=== PATIENT | female | born 1945 | race Caucasian/White ===

== ENCOUNTER → 2023-04-04 09:41 | Outpatient (REF) | payer OTHER, SELFPAY | LOC: HWRAD 09:41 | PROVIDERS: ATTENDING PHYSICIAN Registered Nurse | DX: Z78.0 Asymptomatic menopausal state (principal); Z13.820 Encounter for screening for osteoporosis | CPT/HCPCS: 77080 ==

== ENCOUNTER → 2023-09-03 14:57 | Outpatient (REF) | payer OTHER, SELFPAY | LOC: WDC 14:57 | PROVIDERS: ATTENDING PHYSICIAN Surgery; FAMILY PHYSICIAN Physician Assistant Medical | DX: Z12.31 Encounter for screening mammogram for malignant neoplasm of breast (principal) | CPT/HCPCS: 77063; 77067 ==

== ENCOUNTER → 2023-11-05 07:40 | Outpatient (REF) | payer OTHER, SELFPAY | LOC: WDC 07:40 | PROVIDERS: ATTENDING PHYSICIAN Surgery; FAMILY PHYSICIAN Physician Assistant Medical | DX: R92.2 Inconclusive mammogram (principal) | CPT/HCPCS: 76641 ==

== ENCOUNTER → 2023-12-26 10:30 | Outpatient (REF) | payer OTHER, SELFPAY ==
[2023-12-26 11:32] LABS: ALT (SGPT) 28 U/L (0-35); AST (SGOT) 36 U/L (14-36); Albumin 5.1 g/dl (3.5-5.0); Alkaline Phosphatase 79 U/L (38-126); Blood Urea Nitrogen 13 mg/dl (7-17); Calcium 10.4 mg/dl (8.4-10.2); Carbon Dioxide 28 mmol/L (22-30); Chloride 100 mmol/L (98-107); Glucose 134 mg/dl (70-99); Potassium 4.6 mmol/L (3.5-5.1); Sodium 140 mmol/L (135-145); Total Bilirubin 0.7 mg/dl (0.2-1.3); Total Protein 8.2 g/dl (6.3-8.2); eGFR > 60.00
[2023-12-26 12:49] LABS: Glycohemoglobin (HgbA1c) 6.3 % (4.0-5.6)
== END ==
LOC: REG 10:30
PROVIDERS: ATTENDING PHYSICIAN Physician Assistant Medical
DX: R73.09 Other abnormal glucose (principal)
CPT/HCPCS: 36415; 80053; 83036

== ENCOUNTER → 2024-09-09 12:10 | Outpatient (REF) | payer OTHER, SELFPAY | LOC: WDC 12:10 | PROVIDERS: ATTENDING PHYSICIAN Nurse Practitioner Adult Health; FAMILY PHYSICIAN Physician Assistant Medical | DX: Z12.31 Encounter for screening mammogram for malignant neoplasm of breast (principal) | CPT/HCPCS: 77063; 77067 ==

== ENCOUNTER → 2024-09-17 09:24 | Outpatient (REF) | payer OTHER, SELFPAY ==
[2024-09-17 14:48] LABS: Hepatitis A Antibody, Total Negative (Negative)
== END ==
LOC: HWLAB 09:24
PROVIDERS: ATTENDING PHYSICIAN Physician Assistant Medical
DX: R74.8 Abnormal levels of other serum enzymes (principal)
CPT/HCPCS: 36415; 86706; 86708

== ENCOUNTER → 2024-09-22 09:42 | Outpatient (REF) | payer OTHER, SELFPAY | LOC: WDC 09:42 | PROVIDERS: ATTENDING PHYSICIAN Nurse Practitioner Adult Health; FAMILY PHYSICIAN Physician Assistant Medical | DX: R92.8 Other abnormal and inconclusive findings on diagnostic imaging of breast (principal) | CPT/HCPCS: 76642 ==

== ENCOUNTER → 2024-09-23 09:36 | Outpatient (REF) | payer OTHER, SELFPAY | LOC: HWRAD 09:36 | PROVIDERS: ATTENDING PHYSICIAN Physician Assistant Medical | DX: R74.8 Abnormal levels of other serum enzymes (principal) | CPT/HCPCS: 76700 ==

== ENCOUNTER → 2024-09-30 09:21 | Outpatient (REF) | payer OTHER, SELFPAY ==
[2024-09-30 12:42] LABS: Alkaline Phosphatase 406 U/L (38-126); Alkaline Phosphatase, Total 406 U/L (38-126); Calcium 10.1 mg/dl (8.4-10.2); GGTP 33 U/L (12-43)
[2024-09-30 21:32] LABS: Alk Phos After Heat 291; Alkaline Phosphatase Percent 71.67
== END ==
LOC: HWLAB 09:21
PROVIDERS: ATTENDING PHYSICIAN Physician Assistant Medical
DX: R74.8 Abnormal levels of other serum enzymes (principal)
CPT/HCPCS: 36415; 82977; 83970; 84075; 84078

== ENCOUNTER → 2024-10-05 09:08 | Outpatient (REF) | payer OTHER, SELFPAY ==
[2024-10-05 12:34] LABS: CRP, Ultra Sensitive 4.92 mg/L (0.30-5.00)
[2024-10-07 06:30] LABS: Serine Protease-3, IgG 0 AU/mL (0-19)
[2024-10-07 16:43] LABS: Lyme Antibody Screen, EIA Negative (Negative)
== END ==
LOC: HWLAB 09:08
PROVIDERS: ATTENDING PHYSICIAN Psychiatry & Neurology Neurology; FAMILY PHYSICIAN Physician Assistant Medical
DX: H53.2 Diplopia (principal)
CPT/HCPCS: 83516; 85652; 86041; 86141; 86618

== ENCOUNTER → 2024-10-29 10:41 | Outpatient (REF) | payer OTHER, SELFPAY ==
[2024-10-29 13:42] LABS: Blood Urea Nitrogen 16 mg/dl (7-17); Calcium 9.9 mg/dl (8.4-10.2); Carbon Dioxide 26 mmol/L (22-30); Chloride 100 mmol/L (98-107); Glucose 102 mg/dl (70-99); Potassium 4.2 mmol/L (3.5-5.1); Sodium 135 mmol/L (135-145); eGFR > 60.00
[2024-10-29 17:42] LABS: Folate > 20.0 ng/ml (2.76-20)
[2024-10-31 07:28] LABS: ANA, IgG Reflex to HEp-2 None Detected (None Detected)
== END ==
LOC: REG 10:41
PROVIDERS: ATTENDING PHYSICIAN Psychiatry & Neurology Neurology; FAMILY PHYSICIAN Physician Assistant Medical
DX: H53.2 Diplopia (principal); H49.22 Sixth [abducent] nerve palsy, left eye; G50.9 Disorder of trigeminal nerve, unspecified; H51.0 Palsy (spasm) of conjugate gaze; H55.09 Other forms of nystagmus
CPT/HCPCS: 36415; 80048; 82164; 82746; 84425; 84446; 86038; 86618; 86780

== ENCOUNTER → 2024-11-18 09:06 | Outpatient (REF) | payer OTHER, SELFPAY ==
[2024-11-18 09:29] LABS: Hematocrit 31.2 % (37.0-47.0); Hemoglobin 10.2 g/dL (12.0-16.0); Mean Corp Hgb Conc. 32.7 g/dL (33.0-37.0); Mean Corpuscular Volume 87.6 fL (81.0-99.0); Platelet Count 204 10^3/uL (130-400); Red Cell Dist. Width 15.7 % (11.5-14.5)
[2024-11-18 09:38] LABS: INR 1.03; PT 14.0 Sec (11.4-14.6)
[2024-11-18 09:44] VITALS: BP 116/83; BP_SYST 105
[2024-11-18 11:30] VITALS: BP 119/70; BP_SYST 90
[2024-11-18 11:45] VITALS: BP 139/74; BP_SYST 91
== END ==
LOC: RADI 09:06
PROVIDERS: ATTENDING PHYSICIAN Internal Medicine Hematology & Oncology; FAMILY PHYSICIAN Physician Assistant Medical; OTHER PHYSICIAN Psychiatry & Neurology Neurology; REFERRING PHYSICIAN Physician Assistant
DX: C79.51 Secondary malignant neoplasm of bone (principal); C50.411 Malignant neoplasm of upper-outer quadrant of right female breast; D68.8 Other specified coagulation defects
CPT/HCPCS: 20225; 36415; 77012; 85027; 85610; 88305; 88311; 88341; 88342; 88360; 99152; 99153; G0123

== ENCOUNTER → 2024-11-19 09:06 | Outpatient (REF) | payer OTHER, SELFPAY ==
[2024-11-19 09:25] LABS: Glucose 139 mg/dl (70-99)
== END ==
LOC: PET 09:06
PROVIDERS: ATTENDING PHYSICIAN Internal Medicine Hematology & Oncology
DX: C50.411 Malignant neoplasm of upper-outer quadrant of right female breast (principal)
CPT/HCPCS: 36415; 82947

== ENCOUNTER → 2024-11-29 10:22 | Outpatient (REF) | payer OTHER, SELFPAY ==
[2024-11-29 15:55] LABS: ALT (SGPT) 49 U/L (0-35); AST (SGOT) 88 U/L (14-36); Albumin 4.0 g/dl (3.5-5.0); Alkaline Phosphatase 691 U/L (38-126); Blood Urea Nitrogen 20 mg/dl (7-17); Calcium 9.8 mg/dl (8.4-10.2); Carbon Dioxide 25 mmol/L (22-30); Chloride 102 mmol/L (98-107); Glucose 159 mg/dl (70-99); Potassium 4.2 mmol/L (3.5-5.1); Sodium 133 mmol/L (135-145); Total Protein 7.0 g/dl (6.3-8.2); eGFR > 60.00
[2024-11-29 15:57] LABS: Hematocrit 29.6 % (37.0-47.0); Hemoglobin 9.6 g/dL (12.0-16.0); Mean Corp Hgb Conc. 32.4 g/dL (33.0-37.0); Mean Corpuscular Volume 87.8 fL (81.0-99.0); Platelet Count 237 10^3/uL (130-400); Red Cell Dist. Width 15.9 % (11.5-14.5)
[2024-11-29 18:42] LABS: Nucleated Red Blood Cells % 0.6 %
[2024-11-29 19:53] LABS: CEA 5.39 ng/ml
[2024-12-01 17:51] LABS: CA 27-29 26.8 U/mL (<=39.0)
== END ==
LOC: HWLAB 10:22
PROVIDERS: ATTENDING PHYSICIAN Internal Medicine Hematology & Oncology; FAMILY PHYSICIAN Physician Assistant Medical
DX: C50.911 Malignant neoplasm of unspecified site of right female breast (principal); C50.411 Malignant neoplasm of upper-outer quadrant of right female breast
CPT/HCPCS: 36415; 80053; 82378; 85025; 86300

== ENCOUNTER → 2024-12-16 11:50 | Outpatient (REF) | payer OTHER, SELFPAY | LOC: REG 11:50 | PROVIDERS: ATTENDING PHYSICIAN Radiology Radiation Oncology; FAMILY PHYSICIAN Physician Assistant Medical | DX: C79.51 Secondary malignant neoplasm of bone (principal) | CPT/HCPCS: 36415; 82565 ==

== ENCOUNTER → 2024-12-20 07:00 | Outpatient (REF) | payer OTHER, SELFPAY | LOC: RAD 07:00 | PROVIDERS: ATTENDING PHYSICIAN Radiology Radiation Oncology; FAMILY PHYSICIAN Physician Assistant Medical | DX: C79.51 Secondary malignant neoplasm of bone (principal) | CPT/HCPCS: 70470; Q9967 ==

== ENCOUNTER → 2024-12-22 10:14 | Outpatient (REF) | payer OTHER, SELFPAY | LOC: HWCARD 10:14 | PROVIDERS: ATTENDING PHYSICIAN Internal Medicine Hematology & Oncology; FAMILY PHYSICIAN Physician Assistant Medical; REFERRING PHYSICIAN Internal Medicine Cardiovascular Disease | DX: C50.911 Malignant neoplasm of unspecified site of right female breast (principal); C50.411 Malignant neoplasm of upper-outer quadrant of right female breast; C79.51 Secondary malignant neoplasm of bone | CPT/HCPCS: 93005 ==

== ENCOUNTER → 2025-01-03 10:42 | Outpatient (REF) | payer OTHER, SELFPAY | LOC: RCS 10:42 | PROVIDERS: ATTENDING PHYSICIAN Internal Medicine Hematology & Oncology; FAMILY PHYSICIAN Physician Assistant Medical | DX: C50.911 Malignant neoplasm of unspecified site of right female breast (principal); C50.411 Malignant neoplasm of upper-outer quadrant of right female breast; C79.51 Secondary malignant neoplasm of bone | CPT/HCPCS: 93005 ==

== ENCOUNTER → 2025-01-17 12:40 | Outpatient (REF) | payer OTHER, SELFPAY | LOC: OIDL 12:40 | PROVIDERS: ATTENDING PHYSICIAN Internal Medicine Hematology & Oncology | DX: C50.911 Malignant neoplasm of unspecified site of right female breast (principal) | CPT/HCPCS: 36415; 86850; 86900; 86901 ==

== ENCOUNTER → 2025-01-19 14:42 | Outpatient (REF) | payer OTHER, SELFPAY | LOC: PAVMRI 14:42 | PROVIDERS: ATTENDING PHYSICIAN Radiology Radiation Oncology; FAMILY PHYSICIAN Physician Assistant Medical | DX: C79.51 Secondary malignant neoplasm of bone (principal) | CPT/HCPCS: 70553; A9575 ==

== ENCOUNTER 2025-01-25 08:58 | Outpatient (RCR) | payer OTHER, SELFPAY ==
[2025-01-25] VITALS (7 sets, daily range): BP systolic 99–130; BP diastolic 45–57
== END 2025-02-09 23:59 | disposition home or self-care (01) ==
LOC: OID 08:58
PROVIDERS: ATTENDING PHYSICIAN Internal Medicine Hematology & Oncology; FAMILY PHYSICIAN Physician Assistant Medical
DX: C50.911 Malignant neoplasm of unspecified site of right female breast (principal); C50.411 Malignant neoplasm of upper-outer quadrant of right female breast; C79.51 Secondary malignant neoplasm of bone; Z17.0 Estrogen receptor positive status [ER+]
CPT/HCPCS: 36415; 36430; 86850; 86900; 86901; 86920; P9016

== ENCOUNTER → 2025-01-31 09:45 | Outpatient (REF) | payer OTHER, SELFPAY | LOC: HWCARD 09:45 | PROVIDERS: ATTENDING PHYSICIAN Internal Medicine Hematology & Oncology; FAMILY PHYSICIAN Physician Assistant Medical | DX: C50.911 Malignant neoplasm of unspecified site of right female breast (principal); C50.411 Malignant neoplasm of upper-outer quadrant of right female breast; C79.51 Secondary malignant neoplasm of bone | CPT/HCPCS: 93005 ==